=== PATIENT | female | born 2000 | race Two or more races ===

== ENCOUNTER 2025-09-08 15:23 | Emergency (ER) | payer OTHER, SELFPAY ==
[2025-09-08 15:23] VITALS: BMI 27.3
[2025-09-08 15:32] VITALS: BP 117/73; PULSE 84; RESP 16; TEMP 36.9; O2SAT 100
--- NOTE | 2025-09-08 15:48 | PD.EDWOUND ---
ED Wound/Laceration-RME/HPI General Chief Complaint: Wound/Laceration Stated Complaint: LAC TO THE LEFT LEG Time Seen by Provider: 09/08/25 15:27 Arrival date/time: 09/08/25 15:23 RME / HPI RME / HPI narrative: 24-year-old female patient was brought in by family for evaluation regarding anterior thigh laceration. 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 Sustaining 1 cm gaping laceration. Bleeding was noted. According to them however when the patient arrived bleeding is controlled. Patient is ambulatory denies any other injury. Tetanus vaccination is less than 5 years old. Related Data Allergies Allergy/AdvReac Type Severity Reaction Status Date / Time No Known Allergies Allergy Verified 09/08/25 15:27 Review of Systems Review of Systems Narrative Review of Systems: Review of system reviewed and within normal limits except mentioned in HPI ED Exam Narrative Physical exam: VITAL SIGNS: Reviewed. GENERAL APPEARANCE: Alert and interactive, follows commands, no acute distress, HEAD AND FACE: Non-traumatic. ENT: PERRL, pink conjunctivitis, eyelid no trauma, Mucous membrane moist. NECK: Supple, nontender, no nuchal rigidity. RECTAL: Deferred. GENITAL: Deferred. NEUROLOGICAL: Gross motor function intact sensory function intact, Appropriate for age. MUSCULOSKELETAL: low back nontender, full range of motion. EXTREMITIES: Nontender, full range of motion. SKIN: Color pink, dry, no rash, +1 cm laceration, gaping, right anterior thigh, no abrasions, no contusions. Distal neurovascular status intact LYMPHATICS: Deferred. Course Quality Measures none Orders Category Date Time Status Ibuprofen Tab [Motrin Tab] Med 09/08/25 15:48 Once 800 mg PO X1 ONE Lidocaine 1% 20 ml [Xylocaine 1% 20 ML] Med 09/08/25 15:48 Once 20 ml INFL X1 ONE Vital Signs Vital signs: Vital Signs Temperature 98.5 F 09/08/25 15:32 Pulse Rate 84 09/08/25 15:32 Respiratory Rate 16 09/08/25 15:32 Blood Pressure 117/73 09/08/25 15:32 Pulse Oximetry (%) 100 09/08/25 15:32 Oxygen Delivery Method Room Air 09/08/25 15:32 PROCEDURES: Laceration Laceration 1: Site: lower extremity Side (If applicable): right Size (cm): 1 Description: linear Depth: simple, single layer Local Anesthetic: lidocaine 1% Amount of anesthesia used (mL): 2 Pre-repair: wound explored and irrigated extensively Skin layer closed with: nylon Suture size (cm): 5-0 Number of sutures: 2 Technique: simple, interrupted Wound / Laceration MDM Narrative MDM Narrative:: 24-year-old female patient was brought in by family for evaluation regarding anterior thigh laceration. 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 Sustaining 1 cm gaping laceration. Bleeding was noted. According to them however when the patient arrived bleeding is controlled. Patient is ambulatory denies any other injury. Tetanus vaccination is less than 5 years old. Repair and suturing was done by me see procedure notes. Patient did not vaccination is up-to-date Patient tolerated procedure well. Stable for discharge home Patient data External records reviewed:: None Clinical information provided by:: none Social determinants that could affect healthcare access:: none Patient has the following chronic illnesses:: None How is presenting disease/condition affected by chronic disease/condition?: no chronic disease Evaluation data The following diagnostics were reviewed and interpreted by me:: other (specify) (None) Lab and/or radiology exams considered but not ordered:: None Interpretation Summary: None Medications / Prescriptions Medications or Prescriptions considered but not ordered:: None Medication administrations:: Medication Administration History Discontinued Medications Ibuprofen (Ibuprofen Tab 400 Mg Tablet) 800 mg PO X1 ONE Stop: 09/08/25 15:49 Last Admin: 09/08/25 16:04 Dose: 800 mg Lidocaine HCl (Lidocaine Hcl 1% 20 Ml Vial) 20 ml INFL X1 ONE Stop: 09/08/25 15:49 Last Admin: 09/08/25 16:04 Dose: 20 ml None Consultations Consultation(s) initiated? (list below): No Diagnosis Wound Differential Diagnosis: laceration, abrasion and avulsion of skin Most likely diagnosis given after review of the tests above:: None Admission Indicated Admission indicated?: not indicated Admission Request Was there a request for admission?: No Disposition Plan Disposition Plan: Discharge Discharge Attestation Discharge Attestation: The patient and all family members were given an opportunity to ask questions and understood the discharge instructions. Discharge instructions specifically effects, indications for sooner follow up or return to the emergency department, and the expected course of current diagnosis. Patient condition: Stable Discharge Plan Plan Patient Disposition: HOME (Self Care) Discharge Disposition comment: Stable Problem List Clinical Impression: Laceration of thigh Patient/Caregiver Discharge Instructions Discharge Activity: activity as tolerated Education Materials: ED Laceration: All Closures Additional Instructions: Thank you for the opportunity for serving you today. You are stable for discharged . You are advised to: Follow-up with your PCP in 1 to 2 days Return to ED for worsening of symptoms Increase oral fluids Take medication as prescribed Print Language: Greek Stand Alone Forms: Rachael Award Info., Patient Portal Info Letter PA/[employer] Supervising Physician PA/[employer] Supervising Physician: MD Shelly
[2025-09-08] MEDS: LIDOCAINE HCL 1% 20 ML VIAL INFL (16:04)
[2025-09-08] MEDS: IBUPROFEN TAB 400 MG TABLET 800 MG PO (16:04)
== END 2025-09-08 16:37 | disposition home or self-care (01) ==
LOC: SERX 16:18
PROVIDERS: Emergency Provider Family Medicine
DX: S71.119A Laceration without foreign body, unspecified thigh, initial encounter (principal); W26.0XXA Contact with knife, initial encounter
CPT/HCPCS: 12001; 99283; J3490; A9270